=== PATIENT | male | born 1935 | race Caucasian/White ===

== ENCOUNTER 2025-08-17 22:41 | Inpatient (IN) | payer BC, SELFPAY ==
[2025-08-17] VITALS (8 sets, daily range): BP systolic 104–145; BP diastolic 57–85
[2025-08-17] MEDS: TYLENOL 1000 MG PO (16:25)
[2025-08-17 16:51] LABS: Hematocrit 42.7 % (39.0-52.0); Hemoglobin 14.2 g/dL (13.0-18.0); Mean Corp Hgb Conc. 33.3 g/dL (33.0-37.0); Mean Corpuscular Volume 87.0 fL (80.0-94.0); Nucleated Red Blood Cells % 0 % (-); Platelet Count 153 10^3/uL (130-400); Red Cell Dist. Width 13.9 % (11.5-14.5)
[2025-08-17 17:02] LABS: ALT (SGPT) 34 U/L (0-50); AST (SGOT) 32 U/L (17-59); Albumin 4.4 g/dl (3.5-5.0); Alkaline Phosphatase 38 U/L (38-126); Blood Urea Nitrogen 21 mg/dl (9-20); Calcium 9.3 mg/dl (8.4-10.2); Carbon Dioxide 27 mmol/L (22-30); Chloride 103 mmol/L (98-107); Glucose 156 mg/dl (70-99); Potassium 4.4 mmol/L (3.5-5.1); Sodium 135 mmol/L (135-145); Total Protein 7.6 g/dl (6.3-8.2); eGFR > 60.00
[2025-08-17] MEDS: DECADRON 10 MG IV (19:43)
[2025-08-17] MEDS: DUONEB 3 ML INH (19:46)
[2025-08-17] MEDS: TYLENOL 650 MG PO (19:46)
--- NOTE | 2025-08-17 19:57 | ED.GENMED ---
History of Present Illness
<Liban Feng Jr., PA-C - Last Filed: 08/17/25 22:45>
General
Chief Complaint: Cold/Flu/URI Symptoms
Source: patient
Exam Limitations: none
Time Seen by Provider: 08/17/25 18:20
Nursing documentation reviewed up to this point in time: agreed with
History of Present Illness
History of Present Illness:
89-year-old male past medical history of A-fib currently on Eliquis, hypertension hyperlipidemia, diabetes presenting to the emergency department today with concerns of upper respiratory symptoms over the past 4 days feeling very weak and tired
today went to urgent care was sent to the ER due to feeling significant weakness and fatigue. Claims to have some chest pain with coughing and some shortness of breath. Denies any nausea vomiting does have sore throat nasal congestion
Past History
<Liban Feng Jr., PA-C - Last Filed: 08/17/25 22:45>
Past History
ED Past Medical History: Arrthythmia (afib), HTN, Hypercholesterolemia and IDDM
ED Past Surgical History: Cardiac (pacer)
Social History
Tobacco: Non-smoker
Review of Systems
<Liban Feng Jr., PA-C - Last Filed: 08/17/25 22:45>
Review of Systems
Allergies reviewed?: Yes
All Other Systems: ROS reviewed and negative except as documented in HPI and ROS
Phy Exam
<Liban Feng Jr., PA-C - Last Filed: 08/17/25 22:45>
Physical Exam
Physical Exam:
GENERAL: Alert , in no apparent distress
EYE: pupils equal and reactive
NECK: Supple, no significant adenopathy.
ENT: Swollen boggy nasal turbinates, irritation of the posterior pharynx without significant swelling to the tonsils uvula midline o/p clr, mmm.
CARDIAC: Regular rate and rhythm .
LUNGS: Diffuse wheezing with exhalation,
ABDOMEN: Soft, without focal tenderness, no r/g, no cvat
NEUROLOGICAL: Alert and oriented, no focal neuro deficits
SKIN: Warm and dry, skin intact.
MUSCULOSKELETAL: No edema, well perfused.
PSYCH: Normal and appropriate interaction.
Course
<Liban Feng Jr., EMILY - Last Filed: 08/17/25 22:45>
Orders/Labs/Results
Orders:
Orders
08/17/25 16:23
Complete Blood Count/With Diff Urgent
Comprehensive Metabolic Panel Urgent
Acetaminophen [Tylenol] 1,000 mg .ROUTE .STK-MED ONE
08/17/25 16:25
Acetaminophen [Tylenol] 1,000 mg PO NOW STA
08/17/25 19:17
Acetaminophen [Tylenol] 650 mg PO NOW STA
Dexamethasone Sod Phosphate [Decadron] 10 mg IV NOW STA
Ipratropium/Albuterol Sulfate [Duoneb] 3 ml INH R NOW ONE
Chest [CR Chest - 2 Views ] Urgent
Comment:
Reason For Exam: cough weakness
08/17/25 19:49
COVID-19 Antigen Urgent
Source: Nasal Swab
Influenza A+B Rapid Molecular Urgent
GIULIANO Source: Nasal Swab
Specimen Description:
08/17/25 19:59
EKG [Electrocardiogram (*1)] Urgent
Reason for Study: Chest Pain
EKG- Treatment ONCE
08/17/25 22:09
Troponin I Urgent
08/17/25 22:21
Admit/Transfer Patient As Directed
Co-Sign Provider:
Level of Care: Inpatient admission
Assign to:: Telemetry
Physician / Group: love
Diagnosis: influenza
Reason for Telemetry: Arrhythmia
Date to Stop Telemetry: 08/20/25
Time to Stop Telemetry: 11:00
Reason for Hospitalization: influenza
Expected length of stay greater than two midnights?: Yes
ELOS- Estimated Length of Stay in days: 2
I certify the patient meets the requirements for IP care: Yes
Code Status As Directed
Resuscitation Status: Full Code
PRN Pain Medication Management As Directed
May give lesser potent ordered pain med per pt: Yes
preference::
Protocol:: Medication orders for pain may be administered in a
manner that supports deferring to patient preference
when the pt is:
- Requesting an ordered lesser potent pain medication.
Least to most potent pain medications are defined
as: acetaminophen < NSAID < tramadol < opioids
(morphine, oxycodone, hydromorphone).
- Requesting a lesser dose of the same medication IF
ORDERED.
- Requesting a less intrusive route of administration
if both routes are prescribed by the provider (PO <
IV).
08/17/25 22:30
Oseltamivir Phosphate [Tamiflu] 30 mg PO BID
PRN Pain Medication Management As Directed
May give lesser potent ordered pain med per pt: Yes
preference::
Protocol:: Medication orders for pain may be administered in a
manner that supports deferring to patient preference
when the pt is:
- Requesting an ordered lesser potent pain medication.
Least to most potent pain medications are defined
as: acetaminophen < NSAID < tramadol < opioids
(morphine, oxycodone, hydromorphone).
- Requesting a lesser dose of the same medication IF
ORDERED.
- Requesting a less intrusive route of administration
if both routes are prescribed by the provider (PO <
IV).
08/17/25 23:45
CefTRIAXone [Rocephin] 1,000 mg IV Q24H
Doxycycline Hyclate [Vibramycin] 100 mg 0.9% Sodium Chloride 250 ml [Nss] 250 ml IV Q12H
08/20/25 11:00
DC Protocol for Telemetry ONCE
Abnormal Lab Results
08/17/25 08/17/25
16:23 21:02
MPV 10.7 H fL
(7.4-10.4)
Abs Immat Gran (auto) 0.1 H 10^3/uL
(0-0.05)
Absolute Neuts (auto) 7.3 H 10^3/uL
(1.4-6.5)
Absolute Lymphs (auto) 0.6 L 10^3/uL
(1.2-3.4)
Absolute Monos (auto) 0.8 H 10^3/uL
(0.1-0.6)
Immature Gran % 0.6 H %
(0-0.5)
Neutrophils % 82.8 H %
(42.2-75.2)
Lymphocytes % 6.5 L %
(20.5-51.1)
BUN 21 H mg/dl
(9-20)
Glucose 156 H mg/dl
(70-99)
POC Glucose 117 H mg/dl
(70-99)
08/17/25 16:23
08/17/25 16:23
Vital Signs
Initial and Last Documented VS:
Initial Vital Signs
Temp Pulse Resp BP Pulse Ox
102.7 F H 81 20 130/75 94
08/17/25 16:14 08/17/25 16:14 08/17/25 16:14 08/17/25 16:14 08/17/25 16:14
Last Documented Vital Signs
Temp Pulse Resp BP Pulse Ox
99.9 F 103 21 118/59 92
08/17/25 18:38 08/17/25 21:45 08/17/25 20:15 08/17/25 21:00 08/17/25 21:45
<Fawn Mulligan MD - Last Filed: 08/17/25 22:22>
Orders/Labs/Results
Orders:
Orders
08/17/25 16:23
Complete Blood Count/With Diff Urgent
Comprehensive Metabolic Panel Urgent
Acetaminophen [Tylenol] 1,000 mg .ROUTE .STK-MED ONE
08/17/25 16:25
Acetaminophen [Tylenol] 1,000 mg PO NOW STA
08/17/25 19:17
Acetaminophen [Tylenol] 650 mg PO NOW STA
Dexamethasone Sod Phosphate [Decadron] 10 mg IV NOW STA
Ipratropium/Albuterol Sulfate [Duoneb] 3 ml INH R NOW ONE
Chest [CR Chest - 2 Views ] Urgent
Comment:
Reason For Exam: cough weakness
08/17/25 19:49
COVID-19 Antigen Urgent
Source: Nasal Swab
Influenza A+B Rapid Molecular Urgent
GIULIANO Source: Nasal Swab
Specimen Description:
08/17/25 19:59
EKG [Electrocardiogram (*1)] Urgent
Reason for Study: Chest Pain
EKG- Treatment ONCE
08/17/25 22:09
Troponin I Urgent
08/17/25 22:21
Admit/Transfer Patient As Directed
Co-Sign Provider:
Level of Care: Inpatient admission
Assign to:: Telemetry
Physician / Group: love
Diagnosis: influenza
Reason for Telemetry: Arrhythmia
Date to Stop Telemetry: 08/20/25
Time to Stop Telemetry: 11:00
Reason for Hospitalization: influenza
Expected length of stay greater than two midnights?: Yes
ELOS- Estimated Length of Stay in days: 2
I certify the patient meets the requirements for IP care: Yes
Code Status As Directed
Resuscitation Status: Full Code
PRN Pain Medication Management As Directed
May give lesser potent ordered pain med per pt: Yes
preference::
Protocol:: Medication orders for pain may be administered in a
manner that supports deferring to patient preference
when the pt is:
- Requesting an ordered lesser potent pain medication.
Least to most potent pain medications are defined
as: acetaminophen < NSAID < tramadol < opioids
(morphine, oxycodone, hydromorphone).
- Requesting a lesser dose of the same medication IF
ORDERED.
- Requesting a less intrusive route of administration
if both routes are prescribed by the provider (PO <
IV).
08/17/25 22:30
Oseltamivir Phosphate [Tamiflu] 30 mg PO BID
PRN Pain Medication Management As Directed
May give lesser potent ordered pain med per pt: Yes
preference::
Protocol:: Medication orders for pain may be administered in a
manner that supports deferring to patient preference
when the pt is:
- Requesting an ordered lesser potent pain medication.
Least to most potent pain medications are defined
as: acetaminophen < NSAID < tramadol < opioids
(morphine, oxycodone, hydromorphone).
- Requesting a lesser dose of the same medication IF
ORDERED.
- Requesting a less intrusive route of administration
if both routes are prescribed by the provider (PO <
IV).
08/17/25 23:45
CefTRIAXone [Rocephin] 1,000 mg IV Q24H
Doxycycline Hyclate [Vibramycin] 100 mg 0.9% Sodium Chloride 250 ml [Nss] 250 ml IV Q12H
08/20/25 11:00
DC Protocol for Telemetry ONCE
Abnormal Lab Results
08/17/25 08/17/25
16:23 21:02
MPV 10.7 H fL
(7.4-10.4)
Abs Immat Gran (auto) 0.1 H 10^3/uL
(0-0.05)
Absolute Neuts (auto) 7.3 H 10^3/uL
(1.4-6.5)
Absolute Lymphs (auto) 0.6 L 10^3/uL
(1.2-3.4)
Absolute Monos (auto) 0.8 H 10^3/uL
(0.1-0.6)
Immature Gran % 0.6 H %
(0-0.5)
Neutrophils % 82.8 H %
(42.2-75.2)
Lymphocytes % 6.5 L %
(20.5-51.1)
BUN 21 H mg/dl
(9-20)
Glucose 156 H mg/dl
(70-99)
POC Glucose 117 H mg/dl
(70-99)
08/17/25 16:23
08/17/25 16:23
Vital Signs
Initial and Last Documented VS:
Initial Vital Signs
Temp Pulse Resp BP Pulse Ox
102.7 F H 81 20 130/75 94
08/17/25 16:14 08/17/25 16:14 08/17/25 16:14 08/17/25 16:14 08/17/25 16:14
Last Documented Vital Signs
Temp Pulse Resp BP Pulse Ox
99.9 F 103 21 118/59 92
08/17/25 18:38 08/17/25 21:45 08/17/25 20:15 08/17/25 21:00 08/17/25 21:45
<Liban Feng Jr., PA-C - Last Filed: 08/17/25 22:45>
MDM/Problems Addressed
MDM/Problems Addressed:
89-year-old male presenting to the emergency department today with concerns of flu with generalized weakness fatigue associated. Initially went to urgent care but felt too weak there ambulance was then called to bring him to the ER due to inability
to ambulate and walk while at the urgent care. Here is febrile pulse ox in the low 90s on arrival patient does have expiratory wheeze was initially given dexamethasone and DuoNeb. Labs without specific acute abnormalities. Patient was flu
positive chest x-ray without signs of pneumonia. EKG did show some T wave inversions concerning the troponin was ordered. Patient denies any specific chest pain. Otherwise when patient reassessed he claimed that he still was very weak would not
be able to ambulate he does live in a private residence with elderly . Plan to admit considering significant ongoing symptoms.
<Liban Feng Jr., PA-C - Last Filed: 08/17/25 22:45>
*Pulse Oximetry
SaO2: 94
Oxygen Mode of Delivery: Room air
Patient hypoxic: no (90)
*Critical Care Note
Total Time (30-74mins, 75-104mins- exclusive of procedures): Not Applicable
ED Attending Note
<Liban Feng Jr., PA-C - Last Filed: 08/17/25 22:45>
-
Portions of this chart may have been created with voice recognition software.� Occasional wrong word or��sound alike� substitutions may have occurred due to the inherent limitations of voice recognition software.
<Fawn Mulligan MD - Last Filed: 08/17/25 22:22>
ED Attending Note
Patient seen and examined by attending physician: Yes
I performed the substantive portion of visit, reviewed & personally made and approve the management plan that is documented in note by myself or NOEL.: Yes
ED Attending Note:
89-year-old male with fatigue, cough. Presented urgent care was referred to the emergency department. Noted to be flu positive with fever. Does not meet septic criteria. Chest x-ray not convincing for pneumonia, pulse ox 92%. Patient extremely
fatigued, poor p.o. intake, recommendation for Tamiflu hospitalization.
Discharge Plan
Departure
Patient Disposition: Admit
Date of Disposition: 08/17/25
Time of Disposition: 21:47
Admit to: Telemetry
Admit to doctor: Saúl
Presentation/result/management discussed w/ accepting MD/DO: Hospitalist
Patient with high blood pressure during this ER visit?: No
Condition: Good
Covid-19: Not Applicable
Discharge Problem:
Influenza, Wheeze
Prescriptions:
No Action
diltiazem HCl 240 MG capsule,extended release 24hr
240 mg PO DAILY
ezetimibe 10 MG tablet
10 mg PO HS
rosuvastatin 20 MG tablet
20 mg PO HS
insulin lispro [Humalog KwikPen Insulin] 100 unit/mL insulin pen
1 sliding scale dose SC AC
Humulin N NPH Insulin KwikPen 100 unit/mL (3 mL) insulin pen
15 unit SC HS PRN (Reason: if bs is over 120)
apixaban 5 mg Tablet
5 mg PO BID
tamsulosin 0.4 MG capsule
0.4 mg PO HS
amoxicillin-pot clavulanate 875-125 mg tablet
1 tab PO BID Qty: 14 0RF
sotalol 80 mg tablet
80 mg PO DAILY Qty: 1 0RF
Referrals:
Wes Gongora MD [Family Provider, Internal Medicine]
Interventions
Interventions:
*Risk Screen - Suicide Last Done: 08/17/25 16:14
*General Assessment Last Done: 08/17/25 16:14
*Neglect/Abuse Screening Last Done: 08/17/25 16:14
*ED COVID-19 Vaccine History Last Done: 08/17/25 18:30
*ED Influenza Vaccine History Last Done: 08/17/25 18:30
[facility] Fall Risk Assessment Tool Last Done: 08/17/25 18:30
ED- Pulmonary Assessment Last Done: 08/17/25 18:22
Discharge Date and Time
Print Language: EMIRATI
[2025-08-17 20:35] LABS: COVID-19 Antigen Negative (Negative)
[2025-08-17 21:04] LABS: Glucose - Point of Care 117 mg/dl (70-99)
--- NOTE | 2025-08-17 22:27 | HPS.HSE ---
Addendum entered and electronically signed by Joo Browning MD 08/17/25 22:32:
Medications adjusted. Patient actually on finasteride and tamsulosin.
Original Note:
Family Physician
-
Family Physician: Wes Gongora
Chief Complaint
-
URI symptoms
History of Present Illness
89-year-old male with past medical history of atrial fibrillation on Eliquis with pacemaker, hypertension, hypercholesteremia, diabetes, BPH, history of UTIs presenting with weakness, fatigue for the past 3 days. Decreased p.o. intake. Also with
sore throat, nasal congestion. Chest pain with cough and shortness of breath. Denies nausea or vomiting. No sick contacts.
Patient is a former smoker.. Occasional alcohol use.
Medical History
Past Medical History
Past Medical History: Reports Other (atrial fibrillation on Eliquis with pacemaker, hypertension, hypercholesteremia, diabetes, BPH, history of UTIs)
Past Surgical History: Reports None
Social History
Tobacco: Non-smoker
Alcohol: None
Drug: None
Family History
Family History: Not pertinent
Allergies / Home Medications
Allergies reflects when Allergies were last updated in [employer].
Home Medications with original date entered in [employer]
Allergy/Medication List:
Allergies
Allergy/AdvReac Type Severity Reaction Status Date / Time
No Known Allergies Allergy Verified 08/17/25 16:18
Home Medications
diltiazem HCl 240 mg capsule,extended release 24 hr 240 mg PO DAILY Blood pressure 02/03/22
ezetimibe 10 mg tablet 10 mg PO HS High cholesterol 02/03/22
rosuvastatin 20 mg tablet 20 mg PO HS High cholesterol 02/03/22
apixaban 5 mg tablet 5 mg PO BID Blood clot prevention/tx 08/15/22
insulin NPH isoph U-100 human 100 unit/mL (3 mL) subcutaneous pen (Humulin N NPH U-100 Insulin KwikPen) 15 unit SC HS PRN if bs is over 120 08/15/22
insulin lispro 100 unit/mL subcutaneous pen (Humalog KwikPen (U-100) Insulin) 1 sliding scale dose SC AC Diabetes 08/15/22
tamsulosin 0.4 mg capsule 0.4 mg PO HS Urinary issue 08/15/22
amoxicillin 875 mg-potassium clavulanate 125 mg tablet 1 tab PO BID #14 tabs 08/17/22
sotalol 80 mg tablet 80 mg PO DAILY #1 tab 08/17/22
Review of Systems
-
History Source: Patient
A 12 point ROS was completed and negative except as noted: Yes
Constitutional: Reports No Symptoms
EENT: Reports No Symptoms
Respiratory: Reports No Symptoms
Cardiac: Reports No Symptoms
Abdomen/GI: Reports No Symptoms
: Reports No Symptoms
Musculoskeletal: Reports No Symptoms
Skin: Reports No Symptoms
Neurological: Reports No Symptoms
Endocrine: Reports No Symptoms
Hematologic/Lymphatic: Reports No Symptoms
Psych: Reports No Symptoms
Physical Exam
Vital Signs
Vital Signs
Temp Pulse Resp BP Pulse Ox
99.9 F 103 21 118/59 92
08/17/25 18:38 08/17/25 21:45 08/17/25 20:15 08/17/25 21:00 08/17/25 21:45
Physical Exam
General: Well Developed, Well Nourished and No Apparent Distress
HEENT: NormoCephalic, Moist mucous membranes and Atraumatic
Respiratory: Clear
Cardiac: S1/S2 and Regular Rhythm; No Murmur or Rub
GI: Soft, Non Tender, Non Distended and Normal Bowel Sounds; No Organomegaly
Rectal: Deferred by Provider
Musculoskeletal: No Clubbing, No Cyanosis and No Edema
Skin: No Rash
Neuro: Nonfocal/grossly intact
Laboratory Results
-
12/02/25 16:23
08/17/25 16:23
Laboratory Results
Total Bilirubin 1.2 mg/dl (0.2-1.3) 08/17/25 16:23
AST 32 U/L (17-59) 08/17/25 16:23
ALT 34 U/L (0-50) 08/17/25 16:23
Alkaline Phosphatase 38 U/L (38-126) 08/17/25 16:23
Data Reviewed
-
Lab Data: Labs Reviewed by me
Old Records: Reviewed
Impression/Plan
-
IMPRESSION:
PLAN:
# Influenza A pneumonia
- Chest x-ray showed pulmonary incision markings at least abnormal, cannot exclude acute interstitial process such as edema or pneumonitis
- Tamiflu
-ceftriaxone/doxycycline
- Given DuoNeb, dexamethasone in emergency room
-IV fluids
- Tylenol
Paroxysmal atrial fibrillation with pacemaker
- Continue Eliquis
- Continue diltiazem
- Continue sotalol
Essential hypertension
Hypercholesterolemia
- Continue Zetia
- Continue statin
Type 2 diabetes
- Normally takes 22 units of Humulin 70/30, hold for now given patient is not eating
- Continue insulin sliding scale
BPH
- Continue tamsulosin
History of UTIs
Full code
DVT prophylaxis�Eliquis
Regular diet
[2025-08-17 22:40] LABS: Troponin I 0.017 ng/ml
[2025-08-17] MEDS: TAMIFLU 30 MG PO (23:52)
[2025-08-17] MEDS: ROCEPHIN 1000 MG IV (23:53)
[2025-08-17] MEDS: STERILE WATER FOR INJECTION 10 ML IV (23:54)
[2025-08-17] MEDS: VIBRAMYCIN 260 MG IV (23:56)
[2025-08-18] VITALS (8 sets, daily range): BP systolic 115–144; BP diastolic 58–108; BMI 25.9
[2025-08-18] MEDS: FLUSH (NSS) 1 FLUSH IV
[2025-08-18] MEDS: NSS 1000 IV ×2 (01:08→12:30)
[2025-08-18] MEDS: TYLENOL 650 MG PO (01:45)
--- NOTE | 2025-08-18 01:54 | PTCARENOTE ---
Addendum entered by Georgia Olivera RN 08/18/25 02:09:
patient on 12L midflow as patient sat- 88-90 on 10L. updated DIANA Dunbar.
Original Note:
Rec'd from ER with flu, Patient on 6L -88-90%, with activity- 84. Placed patient on mid flow sat- 91. Bp- 144/108. HR- aflutter/ afib 110-140( not sure its artifact). Patient not in distress/ asymptomatic. C/o mild pain on chest with cough.
Encouraged patient to do frequent cough and deep breath. Updated DIANA Dunbar. Updated RT.
[2025-08-18 07:49] LABS: Hematocrit 41.1 % (39.0-52.0); Hemoglobin 13.6 g/dL (13.0-18.0); Mean Corp Hgb Conc. 33.1 g/dL (33.0-37.0); Mean Corpuscular Volume 87.4 fL (80.0-94.0); Nucleated Red Blood Cells % 0 % (-); Platelet Count 136 10^3/uL (130-400); Red Cell Dist. Width 13.9 % (11.5-14.5)
[2025-08-18 07:57] LABS: Glucose - Point of Care 193 mg/dl (70-99)
[2025-08-18 08:09] LABS: ALT (SGPT) 25 U/L (0-50); AST (SGOT) 25 U/L (17-59); Albumin 3.6 g/dl (3.5-5.0); Alkaline Phosphatase 33 U/L (38-126); Blood Urea Nitrogen 21 mg/dl (9-20); Calcium 8.4 mg/dl (8.4-10.2); Carbon Dioxide 20 mmol/L (22-30); Chloride 106 mmol/L (98-107); Estimated Creatinine Clearance 53 ml/min; Glucose 208 mg/dl (70-99); Potassium 3.9 mmol/L (3.5-5.1); Sodium 134 mmol/L (135-145); Total Protein 6.5 g/dl (6.3-8.2); eGFR > 60.00
[2025-08-18] MEDS: CARDIZEM CD 240 MG PO (08:55)
[2025-08-18] MEDS: BETAPACE 80 MG PO ×2 (08:55→20:15)
[2025-08-18] MEDS: ELIQUIS 5 MG PO ×2 (08:56→20:15)
[2025-08-18] MEDS: HEPARIN 5000 UNITS SC (08:56)
[2025-08-18] MEDS: TAMIFLU 30 MG PO ×2 (08:56→20:15)
[2025-08-18] MEDS: PROSCAR 5 MG PO (08:56)
[2025-08-18 09:16] LABS: Glycohemoglobin (HgbA1c) 7.6 % (4.0-5.9)
[2025-08-18] MEDS: NOVOLOG FLEXPEN-LOW RESISTANCE 1 UNITS SC (09:41)
[2025-08-18 12:24] LABS: Glucose - Point of Care 237 mg/dl (70-99)
[2025-08-18] MEDS: VIBRAMYCIN 260 MG IV ×2 (12:31→23:01)
[2025-08-18] MEDS: NOVOLOG FLEXPEN-LOW RESISTANCE 2 UNITS SC (12:36)
--- NOTE | 2025-08-18 13:54 | W.PN.HOSP.TC ---
Today's Communication/Plan
-
wean o2 as tolerated
abx, tamiflu
incentive [place], acapella
ua
Assessment / Plan
Assessment / Plan
Physical Exam
General: Well Developed, Well Nourished and No Apparent Distress
HEENT: NormoCephalic, Moist mucous membranes and Atraumatic
Respiratory: Clear
Cardiac: S1/S2 and Regular Rhythm; No Murmur or Rub
GI: Soft, Non Tender, Non Distended and Normal Bowel Sounds; No Organomegaly
Rectal: Deferred by Provider
Musculoskeletal: No Clubbing, No Cyanosis and No Edema
Skin: No Rash
Neuro: Nonfocal/grossly intact
#Acute Hypoxic Respiratory Failure
-2/2 to #Influenza A Pneumonia
-Tamiflu
-Abx already started, can complete 5 day course
-S/p IVF
-wean o2 as tolerated; goal o2 >92%
-Incentive [place], Acapella
#Sepsis
-Flu A with end organ dysfunction with respiratory failure
-cont abx, tamilfu
-monitor with resuscitation
#?Cystitis
-f/u UA although now on abx
#Hyponatremia
-mild
-ctm with resuscitation
Paroxysmal atrial fibrillation with pacemaker
- Continue Eliquis
- Continue diltiazem
- Continue sotalol
Essential hypertension
Hypercholesterolemia
- Continue Zetia
- Continue statin
Type 2 diabetes
- Normally takes 22 units of Humulin 70/30, hold for now given patient is not eating
- Continue insulin sliding scale
BPH
- Continue tamsulosin
History of UTIs
Full code
DVT prophylaxis�Eliquis
Regular diet
Total time spent on today's encounter was 51 minutes which included time spent in counseling the patient/family regarding diagnosis and treatment plan as listed above, goals of care, and symptom management. Case was discussed with nursing staff,
specialists, and care coordinators/case management. All labs and imaging personally reviewed by me. Remainder the time spent in detailed review of previous records, lab data, imaging, and other medical provider documentation.
Anticipated Discharge: > 48 hours
Subjective/Interval History
-
Date of Service: August 18, 2025
no acute events overnight
Objective Data
-
Labs:
Laboratory Results
08/18/25
06:47
WBC 14.1 H
Hgb 13.6
Hct 41.1
Plt Count 136
Sodium 134 L
Potassium 3.9
Chloride 106
Carbon Dioxide 20 L
BUN 21 H
Creatinine 0.9
Glucose 208 H
Calcium 8.4
Total Bilirubin 0.8
AST 25
ALT 25
Alkaline Phosphatase 33 L
Vital Signs:
Vital Signs
Temp Pulse Resp BP Pulse Ox
98.8 F 97 18 125/66 96
08/18/25 11:10 08/18/25 11:10 08/18/25 11:10 08/18/25 11:10 08/18/25 11:10
I&O
08/17/25 08/18/25 08/19/25
06:59 06:59 06:59
Intake Total 750 / 750
Output Total 400 / 400
Balance 350 / 350
Review of Systems
-
History Source: Patient
All other systems: Not reviewed unless documented
Physical Exam
-
General: Well Developed, Well Nourished and No Apparent Distress
HEENT: Normocephalic, Atraumatic and Moist Mucous Membranes
Respiratory: Clear to Auscultation; Negative Wheezes, Rales or Rhonchi
Cardiac: Regular Rhythm and S1/S2
GI: Soft, Nontender and Nondistended
Musculoskeletal: No Clubbing, No Cyanosis and No Edema
Skin: Warm and Dry
Neuro: Awake, Alert and Oriented
Data Reviewed
-
Diagnostic Radiology: Report Reviewed by me
CT Scan: Report Reviewed by me
Labs: Labs Reviewed by me
[2025-08-18] MEDS: NOVOLOG FLEXPEN-LOW RESISTANCE 3 UNITS SC (16:47)
[2025-08-18 16:56] LABS: Urine Character Clear (Clear)
[2025-08-18 18:21] LABS: Urine Red Blood Cell 0-2 /HPF (0-2); Urine White Cell 0-2 /HPF (0-5)
[2025-08-18] MEDS: CRESTOR 20 MG PO (21:08)
[2025-08-18] MEDS: ZETIA 10 MG PO (21:08)
[2025-08-18 22:18] LABS: Glucose - Point of Care 269 mg/dl (70-99)
[2025-08-18 22:18] LABS: Glucose - Point of Care 351 mg/dl (70-99)
[2025-08-18] MEDS: NOVOLOG FLEXPEN 5 UNITS SC (22:54)
[2025-08-18] MEDS: STERILE WATER FOR INJECTION 10 ML IV (23:01)
[2025-08-18] MEDS: ROCEPHIN 1000 MG IV (23:01)
[2025-08-19 03:34] VITALS: BP 112/72
[2025-08-19 06:00] VITALS: BMI 26.7
[2025-08-19 07:04] LABS: Glucose - Point of Care 273 mg/dl (70-99)
[2025-08-19 07:20] VITALS: BP 124/80
[2025-08-19 07:20] LABS: Hematocrit 39.1 % (39.0-52.0); Hemoglobin 13.1 g/dL (13.0-18.0); Mean Corp Hgb Conc. 33.5 g/dL (33.0-37.0); Mean Corpuscular Volume 87.3 fL (80.0-94.0); Platelet Count 128 10^3/uL (130-400); Red Cell Dist. Width 14.1 % (11.5-14.5)
[2025-08-19 07:37] LABS: Glucose - Point of Care 274 mg/dl (70-99)
[2025-08-19 07:38] LABS: Blood Urea Nitrogen 30 mg/dl (9-20); Calcium 8.7 mg/dl (8.4-10.2); Carbon Dioxide 25 mmol/L (22-30); Chloride 105 mmol/L (98-107); Estimated Creatinine Clearance 53 ml/min; Glucose 255 mg/dl (70-99); Potassium 4.5 mmol/L (3.5-5.1); Sodium 134 mmol/L (135-145); eGFR > 60.00
[2025-08-19] MEDS: NOVOLOG FLEXPEN-LOW RESISTANCE 3 UNITS SC (08:10)
[2025-08-19] MEDS: CARDIZEM CD 240 MG PO (08:11)
[2025-08-19] MEDS: TAMIFLU 30 MG PO ×2 (08:11→20:23)
[2025-08-19] MEDS: PROSCAR 5 MG PO (08:11)
[2025-08-19] MEDS: ELIQUIS 5 MG PO ×2 (08:11→20:23)
[2025-08-19] MEDS: BETAPACE 80 MG PO ×2 (08:12→20:24)
--- NOTE | 2025-08-19 10:21 | CM ---
Addendum entered by Lashonda Tse 08/19/25 11:24:
Patient given name of Primary Physician he was assigned to @ [place]
Also provided Family Practice Residency Program Office contact information per his request
Addendum entered by Lashonda Tse 08/19/25 10:29:
Family Physician updated on chart w/ Admissions: Dr. Tato Jacob @ [address] [facility], [address]; [facility]
Original Note:
Met with patient at bedside
Pharmacy verified: [facility] @ [address] [place] [address]
Lives w/ ; [address]+community; multilevel; 3 steps to enter via garage; 15 steps to Loft, railing on stairs; bed and bath 1st floor
PLOF: independent with ambulation, stairs, and ADLs; drives
Wears Continuous Glucose Monitor
NO SNF or Home Health utilization history
Will have transport home when stable
Plan: discharge disposition when medically stable to be determined; Case Management will monitor for needs
[2025-08-19 11:10] VITALS: BP 115/77
[2025-08-19] MEDS: VIBRAMYCIN 260 MG IV ×2 (11:18→23:50)
[2025-08-19] MEDS: NOVOLOG FLEXPEN-LOW RESISTANCE 4 UNITS SC (12:54)
[2025-08-19 13:24] LABS: Glucose - Point of Care 304 mg/dl (70-99)
--- NOTE | 2025-08-19 13:26 | W.PN.HOSP.TC ---
Today's Communication/Plan
-
abx
tamiflu
wean o2
Assessment / Plan
Assessment / Plan
Physical Exam
General: Well Developed, Well Nourished and No Apparent Distress
HEENT: NormoCephalic, Moist mucous membranes and Atraumatic
Respiratory: Clear
Cardiac: S1/S2 and Regular Rhythm; No Murmur or Rub
GI: Soft, Non Tender, Non Distended and Normal Bowel Sounds; No Organomegaly
Rectal: Deferred by Provider
Musculoskeletal: No Clubbing, No Cyanosis and No Edema
Skin: No Rash
Neuro: Nonfocal/grossly intact
#Acute Hypoxic Respiratory Failure
-2/2 to #Influenza A Pneumonia
-Tamiflu
-Abx already started, can complete 5 day course
-S/p IVF
-wean o2 as tolerated; goal o2 >92%
-Incentive [place], Acapella
#Sepsis
-Flu A with end organ dysfunction with respiratory failure
-cont abx, tamilfu
-monitor with resuscitation
#?Cystitis
-f/u UA although now on abx
#Hyponatremia
-mild
-ctm with resuscitation
Paroxysmal atrial fibrillation with pacemaker
- Continue Eliquis
- Continue diltiazem
- Continue sotalol
Essential hypertension
Hypercholesterolemia
- Continue Zetia
- Continue statin
Type 2 diabetes
- Normally takes 22 units of Humulin 70/30, hold for now given patient is not eating
- Continue insulin sliding scale
BPH
- Continue tamsulosin
History of UTIs
Full code
DVT prophylaxis�Eliquis
Regular diet
Anticipated Discharge: > 48 hours
Subjective/Interval History
-
Date of Service: August 19, 2025
no acute events overnights
Objective Data
-
Labs:
Laboratory Results
08/19/25
06:30
WBC 11.7 H
Hgb 13.1
Hct 39.1
Plt Count 128 L
Sodium 134 L
Potassium 4.5
Chloride 105
Carbon Dioxide 25
BUN 30 H
Creatinine 0.9
Glucose 255 H
Calcium 8.7
Vital Signs:
Vital Signs
Temp Pulse Resp BP Pulse Ox
97.7 F 116 16 115/77 94
08/19/25 11:10 08/19/25 11:10 08/19/25 11:10 08/19/25 11:10 08/19/25 11:10
I&O
08/18/25 08/19/25 08/20/25
06:59 06:59 06:59
Intake Total 750 / 750 1640 / 1640
Output Total 400 / 400 900 / 900
Balance 350 / 350 740 / 740
Review of Systems
-
History Source: Patient
All other systems: Not reviewed unless documented
Data Reviewed
-
Diagnostic Radiology: Report Reviewed by me
CT Scan: Report Reviewed by me
Labs: Labs Reviewed by me
[2025-08-19 15:20] VITALS: BP 126/74
[2025-08-19 17:10] LABS: Glucose - Point of Care 389 mg/dl (70-99)
[2025-08-19] MEDS: NOVOLOG FLEXPEN-LOW RESISTANCE 5 UNITS SC (17:13)
--- NOTE | 2025-08-19 18:13 | PTCARENOTE ---
Patient's mealtime sugars today 274, 304, and 389, covered with insulin sliding scale per protocol - see MAR. made aware of sugars, verbal orders taken by this RN to change diet to 2000 gabi diabetic diet and to add patient's home dose of 22 units
subq Humulin HS.
Patient OOB to chair this shift x1 assist and RW, O2 weaned to 4L midflow cannula, POX 95%. Patient with frequent moist productive cough, bringing up thick perez sputum, MD aware, no new orders.
[2025-08-19 19:07] VITALS: BP 106/80
[2025-08-19 22:03] LABS: Glucose - Point of Care 307 mg/dl (70-99)
[2025-08-19] MEDS: CRESTOR 20 MG PO (22:07)
[2025-08-19] MEDS: ZETIA 10 MG PO (22:07)
[2025-08-19] MEDS: HUMULIN N KWIKPEN 22 UNITS SC (22:08)
[2025-08-19 23:00] VITALS: BP 137/84
[2025-08-19] MEDS: STERILE WATER FOR INJECTION 10 ML IV (23:50)
[2025-08-19] MEDS: ROCEPHIN 1000 MG IV (23:50)
[2025-08-20 03:11] VITALS: BP 123/83
[2025-08-20 07:00] VITALS: BP 127/85
[2025-08-20 07:05] LABS: Blood Urea Nitrogen 28 mg/dl (9-20); Calcium 8.4 mg/dl (8.4-10.2); Carbon Dioxide 26 mmol/L (22-30); Chloride 104 mmol/L (98-107); Estimated Creatinine Clearance 53 ml/min; Glucose 212 mg/dl (70-99); Potassium 4.0 mmol/L (3.5-5.1); Sodium 134 mmol/L (135-145); eGFR > 60.00
[2025-08-20 07:41] LABS: Hematocrit 38.4 % (39.0-52.0); Hemoglobin 12.8 g/dL (13.0-18.0); Mean Corp Hgb Conc. 33.3 g/dL (33.0-37.0); Mean Corpuscular Volume 87.3 fL (80.0-94.0); Platelet Count 143 10^3/uL (130-400); Red Cell Dist. Width 14.1 % (11.5-14.5)
[2025-08-20] MEDS: TAMIFLU 30 MG PO (07:52)
[2025-08-20] MEDS: BETAPACE 80 MG PO (07:52)
[2025-08-20] MEDS: PROSCAR 5 MG PO (07:52)
[2025-08-20] MEDS: CARDIZEM CD 240 MG PO (07:52)
[2025-08-20] MEDS: ELIQUIS 5 MG PO (07:53)
[2025-08-20 08:59] LABS: Glucose - Point of Care 199 mg/dl (70-99)
[2025-08-20] MEDS: NOVOLOG FLEXPEN-LOW RESISTANCE 1 UNITS SC (09:01)
[2025-08-20 10:19] VITALS: BP 121/71; PULSE 120; O2SAT 100
[2025-08-20 11:03] VITALS: BP 118/80
[2025-08-20] MEDS: VIBRAMYCIN 260 MG IV (11:28)
--- NOTE | 2025-08-20 12:24 | W.PN.HOSP.TC ---
Addendum entered and electronically signed by Bay Vizcaino MD 08/20/25 16:35:
[id number]
Original Note:
Today's Communication/Plan
-
Antibiotic course
Tamiflu
Follow-up PCP outpatient
Lab work within 1 week
Assessment / Plan
Assessment / Plan
Physical Exam
General: Well Developed, Well Nourished and No Apparent Distress
HEENT: NormoCephalic, Moist mucous membranes and Atraumatic
Respiratory: Clear
Cardiac: S1/S2 and Regular Rhythm; No Murmur or Rub
GI: Soft, Non Tender, Non Distended and Normal Bowel Sounds; No Organomegaly
Rectal: Deferred by Provider
Musculoskeletal: No Clubbing, No Cyanosis and No Edema
Skin: No Rash
Neuro: Nonfocal/grossly intact
#Acute Hypoxic Respiratory Failure, resolved
-2/2 to #Influenza A Pneumonia
-Tamiflu
-Abx already started, can complete 7 day course
-S/p IVF
-wean o2 as tolerated; goal o2 >92%; ambulating pulmonary 2% on room air
-Incentive Brendon, Acapella
#Sepsis
-Flu A with end organ dysfunction with respiratory failure
-cont abx, tamilfu
-monitor with resuscitation
�See plan above
#?Cystitis
-f/u UA although now on abx�negative
#Hyponatremia
-mild
-ctm with resuscitation
�Follow-up outpatient
Paroxysmal atrial fibrillation with pacemaker
- Continue Eliquis
- Continue diltiazem
- Continue sotalol
Essential hypertension
Hypercholesterolemia
- Continue Zetia
- Continue statin
Type 2 diabetes
- Normally takes 22 units of Humulin 70/30, hold for now given patient is not eating
- Continue insulin sliding scale
BPH
- Continue tamsulosin
History of UTIs
Full code
DVT prophylaxis�Eliquis
Regular diet
More than 30 minutes spent in discharge including
Final examination of the patient
Summarizing hospital stay
Instructions for continuing care to all relevant caregivers
Preparation of discharge records, prescriptions, and referral forms
Total time spent (in minutes): 36
Anticipated Discharge: Today
Subjective/Interval History
-
Date of Service: August 20, 2025
Weaned on room air, ambulating without oxygen supplementation, saturating over 90%
Objective Data
-
Labs:
Laboratory Results
08/20/25
06:04
WBC 9.8
Hgb 12.8 L
Hct 38.4 L
Plt Count 143
Sodium 134 L
Potassium 4.0
Chloride 104
Carbon Dioxide 26
BUN 28 H
Creatinine 0.9
Glucose 212 H
Calcium 8.4
Vital Signs:
Vital Signs
Temp Pulse Resp BP Pulse Ox
97.7 F 110 16 118/80 93
08/20/25 11:03 08/20/25 11:03 08/20/25 11:03 08/20/25 11:03 08/20/25 11:03
I&O
08/19/25 08/20/25 08/21/25
06:59 06:59 06:59
Intake Total 1640 / 1640 2165 / 2165
Output Total 900 / 900 975 / 975 450 / 450
Balance 740 / 740 1190 / 1190 -450 / -450
Review of Systems
-
History Source: Patient
All other systems: Not reviewed unless documented
Physical Exam
-
General: Well Developed, Well Nourished and No Apparent Distress
HEENT: Normocephalic, Atraumatic and Moist Mucous Membranes
Respiratory: Clear to Auscultation; Negative Wheezes, Rales or Rhonchi
Cardiac: Regular Rhythm and S1/S2
GI: Soft, Nontender and Nondistended
Musculoskeletal: No Clubbing, No Cyanosis and No Edema
Skin: Warm and Dry
Neuro: Awake, Alert and Oriented
--- NOTE | 2025-08-20 12:26 | W.DS.TRANS ---
DC Summary - Municipal Clerk
-
Discharge Instructions:
Discharge Diagnosis/Procedures Influenza Pneumonia
#Acute Hypoxic Respiratory Failure
#Sepsis
Diet Low Cholesterol,Low Fat,Diabetic, Carb
Controlled
Blood Work cbc and cmp in 1 week with pcp
Instructions:
Stand-Alone Forms:
Changes to Home Medications: Yes
Discharge Medications:
DC Medications w/original date entered in [employer]
diltiazem HCl 240 mg capsule,extended release 24 hr 240 mg PO DAILY Blood pressure 02/03/22
ezetimibe 10 mg tablet 10 mg PO HS High cholesterol 02/03/22
rosuvastatin 20 mg tablet 20 mg PO HS High cholesterol 02/03/22
apixaban 5 mg tablet 5 mg PO BID Blood clot prevention/tx 08/15/22
insulin NPH isoph U-100 human 100 unit/mL (3 mL) subcutaneous pen (Humulin N NPH U-100 Insulin KwikPen) 22 unit SC HS 08/15/22
insulin lispro 100 unit/mL subcutaneous pen (Humalog KwikPen (U-100) Insulin) 8 sliding scale dose SC AC Diabetes 08/15/22
tamsulosin 0.4 mg capsule 0.4 mg PO HS Urinary issue 08/15/22
sotalol 80 mg tablet 80 mg PO DAILY #1 tab 08/17/22
cefdinir 300 mg capsule 300 mg PO Q12H 4 days #8 caps 08/20/25
doxycycline hyclate 100 mg capsule 100 mg PO BID 4 days #8 caps 08/20/25
oseltamivir 30 mg capsule 30 mg PO BID 2 days #4 caps 08/20/25
Home Medication Changes
cefdinir 300 mg capsule 300 mg PO Q12H 4 days #8 caps 08/20/25
doxycycline hyclate 100 mg capsule 100 mg PO BID 4 days #8 caps 08/20/25
oseltamivir 30 mg capsule 30 mg PO BID 2 days #4 caps 08/20/25
Pending Results: No
--- NOTE | 2025-08-20 12:32 | CM ---
Spoke with patient via phone; discharge plan discussed; explained that home health for PT was recommended; patient declined; stated he does not need it.
PT provided rolling walker
Family providing transport home
Plan: Discharge to home today; declined home health services
[2025-08-20] MEDS: NOVOLOG FLEXPEN-LOW RESISTANCE SC (12:38)
[2025-08-20 12:39] LABS: Glucose - Point of Care 265 mg/dl (70-99)
--- NOTE | 2025-08-20 13:42 | PTCARENOTE ---
Patient discharged home, transported by family. This RN removed patient's IV, tele pack removed by tech. Patient assisted in dressing in home clothes by this RN and belongings gathered in room. This RN reviewed discharge instructions and medications
with patient who verbalized understanding. Script for RW handed to PT, PT provided patient with RW to take home. Patient taken down to family member's car at main lobby via staff escort and wheelchair.
== END 2025-08-20 13:45 | disposition home or self-care (01) | DRG 871 ==
LOC: 2 NORTH 22:41
PROVIDERS: Emergency Medicine; Physician Assistant; ADMITTING PHYSICIAN Hospitalist; ATTENDING PHYSICIAN Internal Medicine; EMERGENCY PHYSICIAN Emergency Medicine; FAMILY PHYSICIAN Internal Medicine
DX: A41.89 Other specified sepsis (principal); J10.01 Influenza due to other identified influenza virus with the same other identified influenza virus pneumonia; J96.01 Acute respiratory failure with hypoxia; E87.1 Hypo-osmolality and hyponatremia; I48.0 Paroxysmal atrial fibrillation; E78.00 Pure hypercholesterolemia, unspecified; I10 Essential (primary) hypertension; N40.0 Benign prostatic hyperplasia without lower urinary tract symptoms; E11.9 Type 2 diabetes mellitus without complications; Z87.891 Personal history of nicotine dependence; Z87.440 Personal history of urinary (tract) infections; Z79.01 Long term (current) use of anticoagulants; Z79.4 Long term (current) use of insulin; Z95.0 Presence of cardiac pacemaker; Z11.52 Encounter for screening for COVID-19; R65.20 Severe sepsis without septic shock
CPT/HCPCS: 71046; 80048; 80053; 81003; 81015; 82962; 83036; 84484; 85025; 85027; 87502; 87811; 93005; 94640; 96365; 96375; 97162; 99285